=== PATIENT | female | born 1980 | race African-American/Black ===

== ENCOUNTER 2023-07-25 09:56 | Emergency (ER) | payer MEDICAID, OTHER ==
[~2023-07-25] VITALS: Ht 167.6 cm; Wt 91.0 kg
[2023-07-25 10:01] VITALS: BP 137/81; PULSE 108; RESP 18; TEMP 98.8; O2SAT 98
[2023-07-25] MEDS ORDERED: ACETAMINOPHEN 325MG TABLET PO STA (10:35)
[2023-07-25 11:44] LABS: BASOPHILS % 0.5 % (0.0-2.0); DIFFERENTIAL COMMENT 0; EOSINOPHILS % 0.6 % (0.0-5.0); HEMOGLOBIN. 8.2 g/dL (12.0-16.0); MEAN CORPUSCULAR HGB CONC 30.6 g/dL (31.0-37.0); MEAN CORPUSCULAR VOLUME 72.1 fL (81.0-99.0); MEAN PLATELET VOLUME 7.5 fl (7.4-10.4); NEUTROPHILS % 71.9 % (40.0-76.0); PLATELET 487 x1000/uL (130-400); RED BLOOD CELL COUNT 3.74 mill/uL (4.2-5.4); RED CELL DISTRIBUTION WIDTH 20.9 % (11.6-14.6); WHITE BLOOD COUNT 8.3 x1000/uL (4.5-11.0)
[2023-07-25 12:14] LABS: ALANINE AMINOTRANSFERASE 7 IU/L (10-49); ALBUMIN 4.3 g/dL (3.2-4.8); ASPARTATE AMINOTRANSFERASE 13 IU/L (<34); CALCIUM 9.3 mg/dL (8.7-10.4); CARBON DIOXIDE 26 mEq/L (21-32); CHLORIDE 103 mEq/L (98-107); CREATININE 0.6 mg/dL (0.6-1.0); GLUCOSE 111 mg/dL (70-105); POTASSIUM 3.7 mEq/L (3.5-5.1); PROTEIN TOTAL 8.2 g/dL (6.0-8.3); SODIUM 137 mEq/L (136-145); UREA NITROGEN BLOOD 8 mg/dL (9-23)
[2023-07-25 12:15] LABS: ETHANOL BLOOD < 10 mg/dL (<10)
[2023-07-25] MEDS ORDERED: KETOROLAC 60MG/2ML VIAL IM ONE (14:15)
[2023-07-25 15:15] LABS: *AMPHETAMINES SCREEN URINE NEGATIVE (NEGATIVE); *BARBITURATES SCREEN URINE NEGATIVE (NEGATIVE); *BENZODIAZEPINES SCREEN URINE NEGATIVE (NEGATIVE); *COCAINE SCREEN URINE NEGATIVE (NEGATIVE); CANNABINOID URINE SCREEN NEGATIVE (NEGATIVE); ECSTASY MDMA SCREEN URINE NEGATIVE (NEGATIVE); METHADONE URINE SCREEN Neg (NEGATIVE); OPIATES URINE SCREEN NEGATIVE (NEGATIVE); PHENCYCLIDINE URINE SCREEN NEGATIVE (NEGATIVE)
[2023-07-25] MEDS ORDERED: METH-653 MT (16:47)
[2023-07-25] MEDS ORDERED: KETOROLAC 60MG/2ML VIAL IM NR (17:45)
[2023-07-25] MEDS ORDERED: ACETAMINOPHEN 500MG TABLET PO NR (17:45)
== END 2023-07-25 20:48 | disposition home or self-care (01) ==
LOC: ER 09:56
DX: R53.1 Weakness (principal); Z86.59 Personal history of other mental and behavioral disorders
CPT/HCPCS: 80053; 80305; 81025; 80320; 83605; 85025; 36415; 73552; 72170; 73560; 73590; 73600; 73620; 99285; J1885; G0480